=== PATIENT | male | born 1990 | race Caucasian/White ===

== ENCOUNTER → 2018-05-13 13:24 | Outpatient (CLI) | payer OTHER ==
[2013-07-12 13:45] VITALS: BMI 30.4
[~2018-05-13 13:24] MED LIST: DOXYCYCLINE HY100 M2 PO; FLAGYL500 MG PO; NORCO 5/325 TAB1 TA1 PO
== END | disposition home or self-care (01) ==
LOC: D.CT 13:24
PROVIDERS: ATTEND Family Medicine
DX: G43.709 Chronic migraine without aura, not intractable, without status migrainosus (principal)